=== PATIENT | female | born 1970 | race Caucasian/White ===

== ENCOUNTER 2016-06-19 17:16 | Emergency (ER) | payer BC, MEDICAID ==
--- NOTE | 2016-06-19 17:52 | C.PDOC ---
History Of Present Illness 46F c/o left hip pain for the last 3 days, worse since yesterday. no trauma. pain rad to knee. worse w walking. she took both tylenol and ibuprofen which helped a little. she also notes recent URI sx for the last week including sore throat. no fever. she reports hx of chronic pain in her arms/shoulders for which she recently had an MRI but denies any chronic medical problems. Time Seen by Provider: 06/19/16 17:37 Chief Complaint (Nursing): Lower Extremity Problem/Injury Past Medical History Vital Signs: Last Vital Signs Temp 99.3 F 06/19/16 17:38 Pulse 88 06/19/16 17:38 Resp 19 06/19/16 17:38 BP 145/85 06/19/16 17:38 Pulse Ox 98 06/19/16 18:07 Family History: States: Other (nc) - Social History Hx Tobacco Use: No Hx Alcohol Use: No Hx Substance Use: No - Immunization History Hx Tetanus Toxoid Vaccination: No Hx Influenza Vaccination: No Hx Pneumococcal Vaccination: No Review Of Systems Constitutional: Negative for: Fever, Weakness, Malaise ENT: Positive for: Nose Congestion, Throat Pain Cardiovascular: Negative for: Chest Pain Respiratory: Negative for: Shortness of Breath Gastrointestinal: Negative for: Abdominal Pain Genitourinary: Negative for: Dysuria, Frequency, Incontinence Neurological: Negative for: Weakness, Numbness, Headache Physical Exam - Physical Exam Appears: Well, Non-toxic, No Acute Distress Skin: Warm, Dry Eye(s): bilateral: PERRL Oral Mucosa: Moist Throat: No Erythema, No Exudate Neck: Normal ROM, Supple Cardiovascular: Rhythm Regular Respiratory: Normal Breath Sounds, No Decreased Breath Sounds, No Accessory Muscle Use Gastrointestinal/Abdominal: Soft, No Tenderness Extremity: Normal ROM, No Deformity, No Swelling, Other (pain w full ROM of left hip. no redness, warmth, or swelling. ) Pulses: Left Femoral: Normal, Right Femoral: Normal, Left Dorsalis Pedis: Normal , Right Dorsalis Pedis: Normal Neurological/Psych: Oriented x3, Normal Motor, Normal Sensation, Other (no focal deficits) ED Course And Treatment O2 Sat by Pulse Oximetry: 98 Medical Decision Making Medical Decision Making: on bedside ultrasound I do not appreciate any hip effusion 184 the pt reports improvement w toradol. I disc test results, plan for rx and follow up w pcp on Wednesday, as reasons to return. she v/u and agrees w plan. all questions and concerns addressed at this time. Disposition - Disposition Disposition: HOME/ ROUTINE Disposition Time: 18:52 Condition: IMPROVED - Clinical Impression Clinical Impression: Hip pain
[2016-06-19 17:58] VITALS: O2SAT 98
[2016-06-19 18:56] VITALS: BP 106/62; PULSE 84; RESP 20; TEMP 98.8
--- NOTE | 2016-06-20 18:15 | RAD ---
PROCEDURE: Pelvis left hip dated 06/19/2016 HISTORY: hip pain COMPARISON: No prior study available for comparison. TECHNIQUE: Frontal view of the pelvis and both hips as well as frogleg lateral view left hip performed. FINDINGS: No evidence of acute displaced fracture nor dislocation. Osseous structures appear intact. Both femoral heads are appropriately located within the respective acetabula. IMPRESSION: No evidence of acute displaced fracture nor dislocation.
== END 2016-06-19 19:00 | disposition home or self-care (01) ==
LOC: C.ER 17:16
DX: M25.552 Pain in left hip (principal)
CPT/HCPCS: 73502; 96372; 99284; J1885